=== PATIENT | male | born 1985 | race Caucasian/White ===

== ENCOUNTER 2020-03-18 10:54 | Emergency (ER) | payer SELFPAY ==
[2020-03-18 10:55] VITALS: BP 133/98; PULSE 80; RESP 16; TEMP 36.3; O2SAT 98; BMI 33.0
--- NOTE | 2020-03-18 11:13 | RAD_ITS ---
STUDY: X-RAY - LEFT KNEE REASON FOR EXAM: Male, 34 years old. left knee pain since last night, no injury, has gotten worse today TECHNIQUE: 4 view(s) of the knee. COMPARISON: None. FINDINGS: Normal visualized distal femur. Normal visualized proximal tibia and fibula. Normal proximal tibiofibular articulation. Normal medial femorotibial compartment. Normal lateral femorotibial compartment. Normal patellofemoral articulation. The soft tissue structures are unremarkable. RAD/Knee 4 or More Views IMPRESSION: Normal x-ray examination of the knee. Electronically Signed: Vishnu Alvarado MD at 12:24 EST Tel , Service support ,
--- NOTE | 2020-03-18 11:23 | ED.DCSUM_ITS ---
- ER Visit Summary Date of Service: 03/18/20 Chief Complaint: Left knee pain History of Present Illness: The patient is a 34 M who presents with left knee pain that began last evening. Patient states the pain is over the anterior part of the left knee. Patient describes the pain as throbbing and stabbing. Patient states the pain is worse with any weightbearing or palpation. Patient states the pain is been constant. Patient denies any paresthesias or weakness. Patient denies any trauma or injury. Patient states nothing has been helping the pain. Physical Examination: Vital signs are stable. Patient is afebrile. Patient is in no acute distress. Musculoskeletal exam reveals tenderness over the anterior aspect of the left knee. There is no joint effusion. There is no edema or ecchymosis. There is no effusion of the prepatellar bursa. Extensor mechanism is intact. There is tenderness with movement of the patella. There is no joint line tenderness. Varus and valgus stress test were negative. Elizabeth's test was negative. There is no laxity appreciated. There is no calf tenderness noted. There is no edema or tenderness posteriorly. Sensation was intact to light touch bilaterally in the lower extremities. Strength is 5/5 bilaterally in the lower extremities. Posterior tibial pulses are equal bilaterally. Test Results: X-rays of the right knee were obtained. There are 4 views. On my interpretation, there is no acute fracture. There is no effusion. There is no soft tissue swelling. There is no dislocation. Radiologist interpreted the x- ray and agrees. Emergency Department Course and Treatment: Patient was given a dose of Naprosyn here. Patient was instructed to ice and elevate the left knee. Patient was given a prescription for Naprosyn. Patient was instructed to follow-up with his primary care physician in 5 to 7 days. Patient understood and was agreeable with the plan. All questions were answered. Disposition: Discharge home Impression: 1. Left knee pain This note was generated with [employer] dictation software. It may contain incorrect words, spelling, and punctuation that were not noted in review of the chart p rior to signing ED Disposition - Plan for ED Patient: Disposition: Home or Assisted Living Diagnosis: Left anterior knee pain Instructions: ED Knee Pain of Uncertain Cause, ED RICE Prescriptions: Naproxen [Naprosyn] 500 mg PO BID PRN #20 tab Prescription Printed Referrals: Rita Jacobs [NON-STAFF] - 5-7 Days
[2020-03-18] MEDS: Naproxen 500 MG Tablet PO (11:25)
== END 2020-03-18 13:37 | disposition home or self-care (01) ==
PROVIDERS: Emergency Provider Emergency Medicine
DX: M25.562 Pain in left knee (principal); I10 Essential (primary) hypertension; Z72.0 Tobacco use
CPT/HCPCS: 73564; 99283